=== PATIENT | female | born 1995 | race Caucasian/White ===

== ENCOUNTER 2016-11-27 22:41 | Emergency (ER) | payer BC, OTHER ==
--- NOTE | ~2016-11-27 | CT4 ---
[facility] A Service of [facility] RADIOLOGY TEXT RESULTS PATIENT: DEVON LOWE LOCATION: SED : [birth year] UNIT #: [id number] AGE: [address]: TANMAY FARMER SEX: F ORDER DR: [id number] [place] [id number] E MR#: [id number] Acc #: [id number] NAME: DEVON LOWE : 1995 SEX: F STUDY DATE/TIME: 11/28/2016 02:09 UNIT: SED ROOM: STUDY DESCRIPTION: CT Abd and Pelv Wo Cont Attending Physician: Tanmay Farmer Ordering Physician: Physician Non-Staff Primary Care Physician: Rica Coronado Aprn MEDICAL IMAGING REPORT This report is preliminary unless electronic signature is present. EXAM Abdomen and pelvis CT, 11/28 at 02:09 INDICATION Mid to lower pelvic pain that started earlier today. TECHNIQUE Axial noncontrast images were obtained through the abdomen and pelvis. Multiplanar reformats were obtained. This CT exam was performed with one or more of the following radiation dose reduction techniques: automatic exposure control, adjustment of mA and/or kV according to patient size, and iterative reconstruction. COMPARISON 04/05/2013 FINDINGS ABDOMEN: There are small chronic pleural effusions versus pleural thickening. The lung bases are clear. The gallbladder is contracted. There is hepatic steatosis. No renal or ureteral stones. No hydronephrosis. The unenhanced solid organs are otherwise within normal limits. Unopacified GI tract is normal. PELVIS: The appendix is normal. Remainder of the unopacified GI tract is normal as well. There are no lower ureteral stones. The bladder is normal. There is a chronic left ovarian cyst measuring about 2.9 cm. Solid pelvic organs are otherwise unremarkable. No free fluid is seen. Small bilateral Bartholin cysts are suspected. IMPRESSION 1. No renal or ureteral stones. No hydronephrosis. 2. Normal unopacified GI tract including the appendix. [facility] A Service of [facility] RADIOLOGY TEXT RESULTS PATIENT: DEVON LOWE LOCATION: [facility] [place] : [birth year] UNIT #: [id number] AGE: [address]: TANMAY FARMER SEX: F ORDER DR: 3. Chronic trace bilateral pleural effusions versus pleural thickening. 4. Hepatic steatosis. 5. Chronic 2.9 cm left ovarian cyst. 6. Probable small bilateral Bartholin cysts. Dictated by... Ramu Alonzo Jr., M.D. THIS IS AN ELECTRONICALLY VERIFIED REPORT Ramu Alonzo Jr., M.D. at 11/28/2016 9:15 PM NABIL/yuni TD: 11/28/2016 10:25 JOB #: [id number] MEDICAL IMAGING REPORT Page 1 of 1
[~2016-11-27 22:41] MED LIST: AMOXICILLIN875 MG PO; AUGMENTIN PO; BACTRIM DS TABL1 TA1 PO; BACTROBAN22 GM EXT; BENADRYL25 M3 PO; BENTYL20 M1 PO; BENZONATATE PO; FLONASE 0.05% N16 G1 INH; IBUPROFEN PO; IBUPROFEN600 MG PO; KEFLEX500 M1 PO; MACROBID100 MG PO; MOBIC PO; MUSCLE RELAXANT PO; NAPROSYN500 MG PO; NEURONTIN PO; NO MEDICATIONS; PREDNISONE PO; PREDNISONE10 MG/DOSE PO; PRENATAL1 TA1 PO; PROZAC PO; PYRIDIUM100 MG PO; SUDAFED PO
[2016-11-27 23:44] LABS: URINE SOURCE CLEAN CATCH
[2016-11-27 23:47] LABS: URINE APPEARANCE CLEAR; URINE BILIRUBIN NEG (NEG); URINE BLOOD NEG (NEG); URINE COLOR YELLOW; URINE GLUCOSE NEG (NORM); URINE KETONE NEG (NEG); URINE LEUKOCYTE ESTERASE TRACE (NEG); URINE NITRATE NEG (NEG); URINE PH 6.5 (5-8); URINE PROTEIN NEG (NEG); URINE SPECIFIC GRAVITY 1.015 (1.003-1.035); URINE UROBILINOGEN 0.2 MG/DL (NORM)
[2016-11-27 23:52] LABS: MICRO INDICATED? YES
[2016-11-27 23:53] LABS: CULTURE INDICATED? NO; URINE BACTERIA NEG (NEG); URINE RBC 0-2 /[HPF] (0-2); URINE SQUAMOUS EPITHELIAL CELL OCCAS /[HPF]
[2016-11-28 01:24] LABS: BASOPHIL# 0.1 X10e3 (0-0.3); BASOPHIL% 1.3 % (0-2.5); DIFF IND NO; EOSINOPHIL# 0.2 X10e3 (0-0.7); EOSINOPHIL% 2.6 % (0.0-7.0); HEMATOCRIT 40.5 % (35.0-45.0); LYMPHOCYTE% 35.4 % (17.0-45.0); MEAN CELL VOLUME 86.6 FL (83-96); MEAN CORPUSCULAR HGB CONC 34.6 g/dL (30-36); MEAN PLATELET VOLUME 8.1 FL (6.5-11.5); MONOCYTE# 0.6 X10e3 (0-1.0); MONOCYTE% 7.5 % (3.0-12.0); NEUTROPHIL# 4.5 X10e3 (1.5-7.1); NEUTROPHIL% 53.2 % (40-75); PLATELET COUNT 301 X10e3 (140-420); RED BLOOD COUNT 4.67 X10e (3.90-5.30); RED CELL DISTRIBUTION WIDTH 12.7 % (11.0-15.5); WHITE BLOOD COUNT 8.6 X10e3 (4.0-10.5)
[2016-11-28 01:42] LABS: ALBUMIN SERUM 4.5 g/dL (3.5-5.0); BILIRUBIN,TOTAL 0.3 mg/dL (0.2-2.0); BUN/CREATININE RATIO 21.66; CALCIUM SERUM 9.7 mg/dL (8.4-10.2); CREATININE SERUM 0.6 mg/dL (0.6-1.4); GLOM FILT RATE Estimated 129.4 mL/min (>60); PROTEIN TOTAL SERUM 8.1 g/dL (6.0-8.3)
[2016-11-29 23:40] LABS: CHLAMYDIA TRACH Not Detected (Not Detected); N GONOR Not Detected (Not Detected)
== END 2016-11-28 02:45 | disposition home or self-care (01) ==
LOC: SED 22:41
PROVIDERS: Emergency Medicine; Nurse Practitioner
DX: N76.0 Acute vaginitis (principal); N83.202 Unspecified ovarian cyst, left side; F32.9 Major depressive disorder, single episode, unspecified; F17.210 Nicotine dependence, cigarettes, uncomplicated; Z79.899 Other long term (current) drug therapy; Z90.89 Acquired absence of other organs; Z98.890 Other specified postprocedural states
CPT/HCPCS: 36415; 74176; 80053; 81003; 84703; 85025; 87210; 87491; 87591; 87808; 87905; 96361; 96374; 96375; 99284; J1885; J2405

== ENCOUNTER 2017-01-06 06:08 | Emergency (ER) | payer BC, OTHER ==
[~2017-01-06] VITALS: Ht 157.5 cm; Wt 106.6 kg
[2017-01-06 06:35] LABS: URINE SOURCE CLEAN CATCH
[2017-01-06 06:37] LABS: URINE APPEARANCE HAZY; URINE BILIRUBIN NEG (NEG); URINE BLOOD 1+ (NEG); URINE COLOR YELLOW; URINE GLUCOSE NEG (NORM); URINE KETONE NEG (NEG); URINE LEUKOCYTE ESTERASE 3+ (NEG); URINE NITRATE NEG (NEG); URINE PROTEIN NEG (NEG); URINE SPECIFIC GRAVITY <=1.005 (1.003-1.035); URINE UROBILINOGEN 0.2 MG/DL (NORM)
[2017-01-06 06:40] LABS: MICRO INDICATED? YES
[2017-01-06 06:44] LABS: CULTURE INDICATED? YES; URINE BACTERIA 1+ (NEG); URINE WBC 200-300 /[HPF] (0-5)
[2017-01-06 06:45] LABS: URINE MUCUS PRESENT; URINE SQUAMOUS EPITHELIAL CELL MODERATE /[HPF]
== END 2017-01-06 07:05 | disposition home or self-care (01) ==
LOC: SED 06:08
PROVIDERS: Emergency Medicine
DX: N30.90 Cystitis, unspecified without hematuria (principal); Z79.899 Other long term (current) drug therapy
CPT/HCPCS: 81003; 84703; 87086; 87088; 87186; 99283